=== PATIENT | female | born 1965 | race Two or more races ===

== ENCOUNTER 2017-12-08 08:52 | Outpatient (CLI) | payer OTHER ==
[~2017-12-08 08:52] MED LIST: CONEX TABLET1 EACH PO; PROVENTIL HFA6.7 GM IH; SINGULAIR 10MG10 MG PO; SYMBICORT 16010.2 GM IH; TUSSIN100 MG/51 PO; ZYNCOF 20-400120 ML PO
== END 2017-12-08 08:58 | disposition home or self-care (01) ==
LOC: SONOGRAMA 08:52
DX: N60.11 Diffuse cystic mastopathy of right breast (principal); N60.12 Diffuse cystic mastopathy of left breast

== ENCOUNTER 2019-08-08 00:20 | Emergency (ER) | payer OTHER ==
[~2019-08-08] VITALS: Ht 154.9 cm; Wt 86.2 kg
[2019-08-08] MEDS ORDERED: ZEBUTAL 50-3251 EACH PO (06:43)
== END 2019-08-08 08:12 | disposition home or self-care (01) ==
LOC: ER 00:20
DX: K29.60 Other gastritis without bleeding (principal); G43.109 Migraine with aura, not intractable, without status migrainosus; R50.9 Fever, unspecified

== ENCOUNTER 2020-02-26 23:54 | Inpatient (IN) | payer OTHER ==
[~2020-02-26] VITALS: Ht 154.9 cm; Wt 86.2 kg
[~2020-02-26 23:54] MED LIST changes: -BACTRIM DS TAB1 EACH PO; -KEFLEX500 MG PO
--- NOTE | 2020-02-27 00:03 | NUR ---
PTE ALERTA Y ORIENTADA POR JOSIANE, REFIERE PRESENTAR ABSCESO EN MOUSLO SABRNIA DESDE HACE [address] [place] Y NAUSEAS DESDE EL AIME DE HOY.
--- NOTE | 2020-02-27 00:47 | NUR ---
PACIENTE ALERTA Y ORIENTADA EN MATIAS JOSIANE ESFERAS, ES ORIENTADA SOBRE ORDENES MEDICAS, REFIERE ENTENDER. SE COLECTAN MUESTRAS DE JUNIE, SE CANALIZA VENA Y SE ADMINISTRA PEPCID 20 MG IV, TORADOL 30 MG IV Y 0.45 % NSS A 100 ML/HR, PENDIENTE LA ADMINISTRACION DE SEPTRA 80 MG IV CUANDO SUPERVISION LO SUPLA. SE HACE ENTREGA DE ENVASE DE ORINA, PENDIENTE QUE PACIENTE ORINE.
--- NOTE | 2020-02-27 07:11 | NUR ---
SE RECIBE PTE LA CUAL LA CUAL SE ENCUENTRA EN NATALY, CON BARANDAS ELEVADAS, AREA DE VENOPUNCION SE ENCUENTRA PATENTE Y RAJESH DE EDEMA BAJANDO 0.45NSS AT 100 ML/HR. PTE SE ENCUENTRA PEND A CONSULTA CON DR. JUWAN Adrian
[2020-02-29] MEDS ORDERED: BACTRIM DS TAB1 EACH PO (11:18)
[2020-02-29] MEDS ORDERED: KEFLEX500 MG PO (11:25)
== END 2020-02-29 12:45 | disposition home or self-care (01) | DRG 983 ==
LOC: ER 23:54 → SURH 02-27 10:36 → SEC-K 02-27 10:36 → SURH 02-27 16:57
PROVIDERS: ADMIT Internal Medicine; ATTEND Internal Medicine
PROC: 0S9B0ZZ Drainage of Left Hip Joint, Open Approach (ICD-10-PCS; principal; 2020-02-27)
DX: L02.416 Cutaneous abscess of left lower limb (principal); L03.116 Cellulitis of left lower limb; R50.9 Fever, unspecified; B95.61 Methicillin susceptible Staphylococcus aureus infection as the cause of diseases classified elsewhere; Z03.818 Encounter for observation for suspected exposure to other biological agents ruled out

== ENCOUNTER → 2020-02-26 | Emergency (ER) | payer OTHER ==
[~2020-02-26] MED LIST changes: +BACTRIM DS TAB1 EACH PO; +KEFLEX500 MG PO; +ZEBUTAL 50-3251 EACH PO
== END | disposition home or self-care (01) ==
LOC: ER 02:50
DX: L03.116 Cellulitis of left lower limb (principal); B95.2 Enterococcus as the cause of diseases classified elsewhere

== ENCOUNTER 2020-05-10 00:19 | Emergency (ER) | payer OTHER ==
[~2020-05-10] VITALS: Ht 165.1 cm; Wt 81.6 kg
[~2020-05-10 00:19] MED LIST changes: +BACTRIM DS TAB1 EACH PO; +KEFLEX500 MG PO
[2020-05-10] MEDS ORDERED: NORFLEX100MG PO (01:43)
[2020-05-10] MEDS ORDERED: KETO10TA2 PO (01:43)
== END 2020-05-10 02:13 | disposition home or self-care (01) ==
LOC: ER 00:19
DX: S60.211A Contusion of right wrist, initial encounter (principal); S90.32XA Contusion of left foot, initial encounter; S20.213A Contusion of bilateral front wall of thorax, initial encounter; V49.9XXA Car occupant (driver) (passenger) injured in unspecified traffic accident, initial encounter; Y93.89 Activity, other specified; Y92.488 Other paved roadways as the place of occurrence of the external cause; Y99.8 Other external cause status

== ENCOUNTER 2021-09-29 08:07 | Outpatient (CLI) | payer OTHER ==
[~2021-09-29 08:07] MED LIST changes: +KETO10TA2 PO; +NORFLEX100MG PO
== END 2021-09-29 08:30 | disposition home or self-care (01) ==
LOC: MAMO-SONO 08:07
DX: R92.2 Inconclusive mammogram (principal); N64.51 Induration of breast; N83.00 Follicular cyst of ovary, unspecified side; N95.1 Menopausal and female climacteric states

== ENCOUNTER 2023-07-05 05:04 | Emergency (ER) | payer OTHER ==
[~2023-07-05] VITALS: Ht 154.9 cm; Wt 88.5 kg
[2023-07-05 06:51] LABS: URINE APPEARANCE Clear; URINE BILIRRUBIN Negative (NEGATIVE); URINE BLOOD Moderate; URINE COLOR Yellow; URINE LEUKOCYTE Negative; URINE NITRATE Negative; URINE PROTEIN Negative (NEGATIVE)
[2023-07-05 06:55] LABS: URINE BACTERIA 21.4 uL (0.0-1933); URINE EPITHELIAL CELLS 4.3 uL (0.0-38.8); URINE GLUCOSE >=1000 MG/DL (NEGATIVE); URINE RBC 55.9 uL (0.0-20.8); URINE WBC 4.6 uL (0.0-23.2)
[2023-07-05 07:04] LABS: ALBUMIN 3.2 gm/dL (3.4-5.0); BILIRUBIN TOTAL 0.48 mg/dL (0.3-1.2); CALCIUM 8.8 mg/dL (8.5-10.1); CREATININE SERUM 0.96 mg/dL (0.55-1.02); GFR 59.28; GLOBULINA 4.1 G/DL (2.4-3.5); POTASSIUM 3.64 mEq/L (3.5-5.1); TOTAL PROTEIN 7.3 gm/dL (6.4-8.2)
[2023-07-05 07:06] LABS: HEMATOCRIT 36.5 % (36.0-45.00); HEMOGLOBIN 12.2 g/dL (12.0-15.00); MEAN CELL VOLUME 87.7 fL (80.00-100.00); MEAN CORPUSCULAR HEMOGLOBIN 29.3 pg (27.00-32.0); MEAN CORPUSCULAR HGB CONC 33.5 g/dl (32.0-36.0); PLATELET COUNT 359 K/uL (150-450); RED BLOOD COUNT 4.16 M/uL (4.00-6.00); RED CELL DISTRIBUTION WIDTH 13.2 % (11.5-14.5)
[2023-07-05] MEDS ORDERED: ALBUTEROL2.5 MG/3 M IH (08:29)
[2023-07-05] MEDS ORDERED: BUDESONIDE0.5 MG/2 M IH (08:29)
[2023-07-05] MEDS ORDERED: ZYNCOF 20-400120 ML PO (08:29)
== END 2023-07-05 09:06 ==
LOC: ER 05:04
PROVIDERS: General Practice
DX: J40 Bronchitis, not specified as acute or chronic (principal); R06.02 Shortness of breath; R05.9 Cough, unspecified; Z20.822 Contact with and (suspected) exposure to COVID-19; Z88.8 Allergy status to other drugs, medicaments and biological substances; Z91.041 Radiographic dye allergy status

== ENCOUNTER 2024-02-09 10:22 | Emergency (ER) | payer OTHER ==
[~2024-02-09] VITALS: Ht 154.9 cm; Wt 88.0 kg
[~2024-02-09 10:22] MED LIST changes: +ALBUTEROL2.5 MG/3 M IH; +BUDESONIDE0.5 MG/2 M IH; +CEPHALEXIN500 MG PO; +MELOXICAM15 MG PO; +METFORMIN HCL500 M4 PO
[2024-02-09] MEDS ORDERED: TRIAMCINOLONE ACETONIDE 40 MG/ML VIAL ONE (10:28)
[2024-02-09] MEDS ORDERED: TRIAMCINOLONE ACETONIDE 40 MG/ML VIAL IM ONE (10:30)
== END 2024-02-09 11:32 ==
LOC: ER 10:24
DX: S83.92XA Sprain of unspecified site of left knee, initial encounter (principal); S90.32XA Contusion of left foot, initial encounter; S90.31XA Contusion of right foot, initial encounter; X58.XXXA Exposure to other specified factors, initial encounter; Y93.89 Activity, other specified; Y92.89 Other specified places as the place of occurrence of the external cause; Y99.9 Unspecified external cause status; Z88.8 Allergy status to other drugs, medicaments and biological substances; E11.9 Type 2 diabetes mellitus without complications; Z79.84 Long term (current) use of oral hypoglycemic drugs

== ENCOUNTER 2024-02-09 12:11 | Outpatient (CLI) | payer OTHER | END 2024-02-09 12:52 | disposition home or self-care (01) | LOC: MRI 12:11 | PROVIDERS: ATTEND General Practice | DX: S80.02XA Contusion of left knee, initial encounter (principal); S80.00XA Contusion of unspecified knee, initial encounter; M25.462 Effusion, left knee | CPT/HCPCS: 73721 ==

== ENCOUNTER 2024-02-13 12:00 | Outpatient (CLI) | payer OTHER | END 2024-02-13 12:01 | disposition home or self-care (01) | LOC: RAD 12:00 | PROVIDERS: ATTEND General Practice | DX: M25.462 Effusion, left knee (principal); S80.02XA Contusion of left knee, initial encounter ==

== ENCOUNTER 2024-02-27 06:11 | Day surgery (SDC) | payer OTHER ==
[2024-02-22 09:08] LABS: HEMATOCRIT 40.5 % (36.0-45.00); HEMOGLOBIN 14.2 g/dL (12.0-15.00); MEAN CORPUSCULAR HEMOGLOBIN 30.8 pg (27.00-32.0); PLATELET COUNT 299 K/uL (150-450); RED BLOOD COUNT 4.61 M/uL (4.00-6.00); RED CELL DISTRIBUTION WIDTH 13.5 % (11.5-14.5)
[2024-02-22 09:54] LABS: INR 0.97; PARTIAL THROMBOPLASTIN TIME 29.5 SECONDS (22.0-34.0); PROTHROMBIN TIME 10.2 SECONDS (9.0-11.5)
[2024-02-22 10:07] LABS: PH,URINE 5.5 (5.0-8.0); URINE APPEARANCE Clear; URINE BILIRRUBIN Negative (NEGATIVE); URINE BLOOD Trace; URINE COLOR Yellow; URINE GLUCOSE Negative (NEGATIVE); URINE KETONE Trace (NEGATIVE); URINE LEUKOCYTE Negative; URINE NITRATE Negative; URINE PROTEIN Negative (NEGATIVE); URINE UROBILINOGEN 0.2 E.U./dl
[2024-02-22 10:11] LABS: URINE EPITHELIAL CELLS 3.2 uL (0.0-38.8); URINE RBC 53.2 uL (0.0-20.8)
[2024-02-22 10:21] LABS: ALBUMIN 3.7 gm/dL (3.4-5.0); BILIRUBIN TOTAL 0.68 mg/dL (0.3-1.2); CALCIUM 9.3 mg/dL (8.5-10.1); CHOL HDL RATIO 3.6 (0-5.0); CREATININE SERUM 0.74 mg/dL (0.55-1.02); GFR 80.05; GLOBULINA 3.9 G/DL (2.4-3.5); POTASSIUM 4.32 mEq/L (3.5-5.1); TOTAL PROTEIN 7.6 gm/dL (6.4-8.2)
[2024-02-22 10:30] LABS: URINE WBC 1.2 uL (0.0-23.2)
[~2024-02-27] VITALS: Ht 154.9 cm; Wt 88.5 kg
[2024-02-27] MEDS ORDERED: EPINEPHRINE HCL/PF 1 MG/ML AMPUL IR ONE (10:30)
[2024-02-27] MEDS ORDERED: METHYLPREDNISOLONE ACETATE 80 MG/ML VIAL IU ONE ×2 (10:30)
[2024-02-27] MEDS ORDERED: BUPIVACAINE HCL 30 ML VIAL IJ ONE (10:30)
[2024-02-27] MEDS ORDERED: CEFAZOLIN SODIUM 1,000 MG in 0.9 % SODIUM CHLORIDE 50 ML IV ONE (10:30)
[2024-02-27] MEDS ORDERED: TRAM1TAB98 PO (11:08)
[2024-02-27] MEDS ORDERED: ASA325 M1 PO (11:08)
[2024-02-27] MEDS ORDERED: DUI500 PO (11:08)
== END 2024-02-27 15:05 | disposition home or self-care (01) ==
LOC: CIR.AMB 06:11
PROVIDERS: Orthopaedic Surgery; ATTEND Orthopaedic Surgery
DX: S83.242A Other tear of medial meniscus, current injury, left knee, initial encounter (principal); M17.12 Unilateral primary osteoarthritis, left knee; M67.362 Transient synovitis, left knee; M94.262 Chondromalacia, left knee; M23.42 Loose body in knee, left knee; E66.09 Other obesity due to excess calories; Z88.6 Allergy status to analgesic agent; F41.9 Anxiety disorder, unspecified; K21.9 Gastro-esophageal reflux disease without esophagitis